=== PATIENT | male | born 1980 | race Caucasian/White ===

== ENCOUNTER 2020-03-26 00:08 | Emergency (ER) | payer SELFPAY ==
[~2020-03-26] VITALS: Ht 177.8 cm; Wt 88.5 kg
--- NOTE | 2020-03-26 00:29 | NUR ---
Dr Rabago at bedside for MSE.
[2020-03-26] MEDS ORDERED: MORPHINE SULFATE 4 MG/1 ML DISP.SYRIN ONE ×2 (00:49→01:36)
[2020-03-26] MEDS ORDERED: ONDANSETRON 4 MG/2 ML VIAL ONE ×2 (00:49→01:36)
[2020-03-26] MEDS: MORPHINE SULFATE 2 MG/1 ML DISP.SYRIN IV ONE (00:50)
[2020-03-26] MEDS: ONDANSETRON 4 MG/2 ML VIAL IV ONE ×2 (00:50→01:36)
[2020-03-26 00:55] LABS: BASOPHILS # (AUTO) 0.1 K/uL (0.0-8.0); BASOPHILS % (AUTO) 0.9 % (0.0-2.0); EOSINOPHILS # (AUTO) 0.1 K/uL (0.0-0.7); EOSINOPHILS % (AUTO) 1.7 % (0.0-7.0); HEMATOCRIT 39.7 % (36.7-47.1); HEMOGLOBIN 13.8 g/dL (12.5-16.3); LYMPHOCYTES # (AUTO) 1.8 K/uL (20.0-40.0); LYMPHOCYTES % (AUTO) 20.6 % (20.5-51.5); MEAN CORPUSCULAR HEMOGLOBIN 32.8 uug (23.8-33.4); MEAN CORPUSCULAR HGB CONC 35 g/dL (32.5-36.3); MONOCYTES # (AUTO) 0.8 K/uL (2.0-10.0); MONOCYTES % (AUTO) 9.2 % (0.0-11.0); NEUTROPHILS % (AUTO) 67.6 % (38.5-71.5); PLATELET COUNT (AUTO) 356 K/uL (152-348); RED BLOOD CELL COUNT(AUTO) 4.22 MIL/uL (4.06-5.63); WHITE BLOOD COUNT (AUTO) 8.8 K/uL (3.6-10.2)
[2020-03-26] MEDS: IV NORMAL SALINE 1000 ML BAG IV ONE ×2 (00:55→01:35)
--- NOTE | 2020-03-26 00:57 | NUR ---
Pt went down to CT with tech.
[2020-03-26 01:12] LABS: CREATININE 1.5 mg/dL (0.6-1.3); POTASSIUM 3.8 mmol/L (3.5-5.1)
--- NOTE | 2020-03-26 01:15 | NUR ---
Pt is back from CT
[2020-03-26 01:19] LABS: BILIRUBIN,DIRECT 0.1 mg/dL (0.0-0.2); BILIRUBIN,TOTAL 0.3 mg/dL (0.2-1.0); TOTAL PROTEIN, SERUM 7.3 g/dL (6.4-8.2)
[2020-03-26] MEDS: MORPHINE SULFATE 4 MG/1 ML DISP.SYRIN IV ONE (01:36)
--- NOTE | 2020-03-26 02:16 | NUR ---
Pt is cleared for DC by MD. Pt verbalizes feeling better. IV removed. Catheter intact and site benign. Pressure and 4x4 gauze applied to site. No bleeding noted. Written and verbal after care instructions given. Patient verbalizes understanding of instructions. Stressed follow up or return to ER for worsening s/s. Ambulated out of ED in steady gait. Patient discharged to home in stable condition.
[2020-03-26 02:19] VITALS: BP 125/70
== END 2020-03-26 02:22 | disposition home or self-care (01) ==
LOC: EDBD 00:18 → ER 00:18
DX: R11.2 Nausea with vomiting, unspecified (principal); G89.18 Other acute postprocedural pain; R07.81 Pleurodynia; Z90.49 Acquired absence of other specified parts of digestive tract; R00.0 Tachycardia, unspecified; N28.9 Disorder of kidney and ureter, unspecified; Z94.89 Other transplanted organ and tissue status; K50.90 Crohn's disease, unspecified, without complications
CPT/HCPCS: 36415; 74176; 80048; 80076; 83690; 85025; 93005; 96361; 96374; 96375; 96376; 99285; J2270 ×2; J2405 ×2; A4663; J7030